=== PATIENT | male | born 1950 | race Caucasian/White ===

== ENCOUNTER 2018-08-19 01:48 | Day surgery (SDC) | payer MEDICARE ==
[~2018-08-19] VITALS: Ht 167.6 cm; Wt 72.6 kg
[~2018-08-19 01:48] MED LIST: ATR80PT PO; CEPH-13 PO; CHOL10005 PO; HYDR-3503 PO
[2018-08-19] MEDS: NORMOSOL R SOLN(*) 1000 ML BAG 1,000 ML IV ONE ×2 (06:56→06:59)
[2018-08-19] MEDS: LIDOCAINE/SOD BICARB 8.4% SYR ONE ×2 (06:57→06:59)
[2018-08-19 07:10] VITALS: BP 138/91
[2018-08-19] MEDS ORDERED: PROPOFOL EMUL(*) 10MG/ML 20 ML 20 ML ONE ×2 (07:10→08:44)
[2018-08-19 09:21] VITALS: BP 127/88
--- NOTE | 2018-08-19 09:25 | Short(Outpt) Discharge Summary ---
Discharge Summary Reason for Hosp/Final Diag: (1) H/O adenomatous polyp of colon Status: Chronic Hospital Course & Plan: Colonoscopy with polypectomy x8 completed without pro blems. Departure Discharge to: Home, Self Care Discharge Instructions Home Meds Reported Medications Cholecalciferol (Vitamin D3) (VITAMIN D3) 1,000 Unit Tablet, 1000 UNIT PO PRN, TAB 06/16/18 Atorvastatin Calcium (Lipitor) 80 Mg Tablet, 80 MG PO QHS 09/08/12 Diet: Regular Activity: As Tolerated Special Instructions: Your colonoscopy was completed without problems and you prep was excellent (Good Job!!). I removed 8 polyps from your colon, including a couple of larger polyps. They were all sent to pathology. My office will call you in the next week or two to let you know what the polyps are but, in any case, due to your previous history of advanced precancerous polyps and now with the number and size of the polyps that I found today, I will likely recommend that your next colonoscopy be in 3 years. MAR BULL MD August 19, 2018 09:25
[2018-08-19 09:30] VITALS: BP 130/89
[2018-08-19 09:48] VITALS: BP 129/111
[2018-08-19 09:50] VITALS: BP 125/92
--- NOTE | 2018-08-19 11:15 | NUR ---
1115- D/C IV WITH CATH INTACT, PRESSURE DRESSING APPLIED WITH GAUZE AND COBAND 1120- MAGALY AT BEDSIDE, REVIEWED D/C INSTRUCTIONS 1125- PT AMBULATORY TO [facility], ACCOMPANIED BY KRISTA MENESES AND MAGALY
[2018-08-20] MEDS ORDERED: LIDOCAINE/SOD BICARB 8.4% SYR ID ONE (07:25)
[2018-08-20] MEDS ORDERED: NORMOSOL R SOLN(*) 1000 ML BAG 1,000 ML IV PRN (07:25)
== END 2018-08-19 11:20 | disposition home or self-care (01) ==
LOC: OR 01:48
PROVIDERS: ATTEND Surgery
DX: Z12.11 Encounter for screening for malignant neoplasm of colon (principal); D12.3 Benign neoplasm of transverse colon; D12.5 Benign neoplasm of sigmoid colon; Z86.010 Personal history of colon polyps
CPT/HCPCS: 00811; 45385; 88305; J2704